=== PATIENT | male | born 1975 | race Caucasian/White ===

== ENCOUNTER 2016-07-03 08:10 | Emergency (ER) | payer OTHER ==
[2016-07-03 08:27] VITALS: BP 133/88; PULSE 78; RESP 18; TEMP 98.1; O2SAT 100
--- NOTE | 2016-07-03 10:13 | ED PDOC ---
HPI: Abdomen Time Seen by Provider: 07/03/16 09:02 Chief Complaint (Nursing): Abdominal Pain Chief Complaint (Provider): Abdominal Pain History Per: Patient History/Exam Limitations: no limitations Onset/Duration Of Symptoms: Days Current Symptoms Are (Timing): Still Present Additional Complaint(s): 41 y/o male presents to the emergency department with a complaint abdominal pain x 1 week. Associated with 1 episode of vomiting that occurred 1 week ago ( had resolved since). States his PMD in [place] gave him medication (ofloxacin/ ornidazole) for stomach infection. Denies pain radiating to the shoulder or back , fever, chills, nausea, vomiting, and diarrhea. Past Medical History Reviewed: Historical Data, Nursing Documentation, Vital Signs Vital Signs: Last Vital Signs Temp 98.1 F 07/03/16 09:07 Pulse 78 07/03/16 09:07 Resp 18 07/03/16 09:07 BP 133/88 07/03/16 09:07 Pulse Ox 100 07/03/16 11:46 - Medical History PMH: No Chronic Diseases - Surgical History Surgical History: No Surg Hx - Family History Family History: States: Unknown Family Hx - Social History Current smoker - smoking cessation education provided: Yes Alcohol: Social Drugs: Denies - Home Medications Home Medications: Ambulatory Orders Medication Instructions Recorded Dicyclomine [Bentyl] 10 mg PO QID PRN #30 cap 07/03/16 Famotidine [Pepcid] 20 mg PO BID #28 tab 07/03/16 - Allergies Allergies/Adverse Reactions: Allergies Allergy/AdvReac Type Severity Reaction Status Date / Time No Known Allergies Allergy Verified 07/03/16 09:07 Review of Systems ROS Statement: Except As Marked, All Systems Reviewed And Found Negative Constitutional: Negative for: Fever, Chills Gastrointestinal: Positive for: Vomiting (1 episode; had resolved since), Abdominal Pain. Negative for: Nausea, Diarrhea Musculoskeletal: Negative for: Shoulder Pain, Back Pain Physical Exam - Reviewed Nursing Documentation Reviewed: Yes Vital Signs Reviewed: Yes - Physical Exam Appears: Positive for: Non-toxic, No Acute Distress Head Exam: Positive for: ATRAUMATIC, NORMOCEPHALIC Skin: Positive for: Normal Color, Warm, Dry Neck: Positive for: Normal, Supple Cardiovascular/Chest: Positive for: Regular Rate, Rhythm. Negative for: Murmur Respiratory: Positive for: Normal Breath Sounds. Negative for: Accessory Muscle Use, Respiratory Distress Gastrointestinal/Abdominal: Positive for: Soft, Tenderness (Epigastric tenderness) Neurologic/Psych: Positive for: Alert, Oriented - Laboratory Results Result Diagrams: 07/03/16 10:00 07/03/16 10:00 - ECG O2 Sat by Pulse Oximetry: 100 (RA) Pulse Ox Interpretation: Normal - Progress Condition: Re-examined, Improved Medical Decision Making Medical Decision Making: Time: 9:02 Initial plan: --Comp metabolic panel --Lipase Stat --ED Urine dipstick (POC) Stat --CC w/ differential --Pepcid 20 mg IVP --Toradol 30 mg IV --IV Insertion --Abdomen COMPLETE US --Revaluation Scribe Attestation: Documented by Amaya Chavez, acting as a scribe for Christina Willis MD. Provider Scribe Attestation: All medical record entries made by the Scribe were at my direction and personally dictated by me. I have reviewed the chart and agree that the record accurately reflects my personal performance of the history, physical exam, medical decision making, and the department course for this patient. I have also personally directed, reviewed, and agree with the discharge instructions and disposition. Disposition - Clinical Impression Clinical Impression: Abdominal pain - Patient ED Disposition Is Patient to be Admitted: No Doctor Will See Patient In The: Office Counseled Patient/Family Regarding: Diagnosis, Need For Followup, Rx Given - Disposition Referrals: [facility] [Outside] [facility] [Outside] Disposition: Routine/Home Disposition Time: 11:44 Condition: IMPROVED Prescriptions: Dicyclomine [Bentyl] 10 mg PO QID PRN #30 cap PRN Reason: Anaphylaxis Famotidine [Pepcid] 20 mg PO BID #28 tab Instructions: Abdominal Pain (ED) - POA Present On Arrival: None
[2016-07-03 10:29] LABS: BASO # 0.1 K/uL (0.0-0.2); BASO % 0.5 % (0.0-2.0); EOS # 0.9 K/uL (0.0-0.7); EOS % 6.2 % (0.0-4.0); HEMATOCRIT 49.7 % (35.0-51.0); LYMPH # 1.9 K/uL (1.0-4.3); LYMPH % 13.4 % (20.0-40.0); MEAN CELL VOLUME 86.7 fl (80.0-94.0); MEAN CORPUSCULAR HEMOGLOBIN 29.2 pg (27.0-31.0); MEAN CORPUSCULAR HGB CONC 33.7 g/dL (33.0-37.0); MEAN PLATELET VOLUME 8.7 fl (7.2-11.7); MONO % 7.2 % (0.0-10.0); NEUT # 10.1 K/uL (1.8-7.0); NEUT % 72.7 % (50.0-75.0); NRBC % 0.1 % (0.0-0.0); RED CELL DISTRIBUTION WIDTH 13.6 % (11.5-14.5); WHITE BLOOD COUNT 13.8 K/uL (4.8-10.8)
[2016-07-03 10:43] LABS: ALB/GLOB RATIO 1.1 (1.0-2.1); ALKALINE PHOSPHATASE 74 U/L (38-126); ALT/SGPT 37 U/L (21-72); AST/SGOT 26 U/L (17-59); BILIRUBIN,TOTAL 0.6 mg/dl (0.2-1.3); BLOOD UREA NITROGEN 13 mg/dl (9-20); CALCIUM 9.2 mg/dL (8.4-10.2); CARBON DIOXIDE 22 mmol/L (22-30); CHLORIDE 105 mmol/L (98-107); GFR AFRICAN-AMERICAN > 60; GLUCOSE,RANDOM 99 mg/dL (75-110); LIPASE 99 U/L (23-300); POTASSIUM 4.3 MMOL/L (3.6-5.0); SODIUM 137 mmol/l (132-148); TOTAL PROTEIN 7.2 G/DL (6.3-8.2)
--- NOTE | 2016-07-03 14:10 | US ---
HISTORY: abd pain COMPARISON: None. TECHNIQUE: Sonographic evaluation of the abdomen. FINDINGS: LIVER: Measures cm. Normal echogenicity of the liver parenchyma. 2.6 centimeter hyperechoic lesion in the right hepatic lobe possibly representing hemangioma. Recommend correlation with MRI. GALLBLADDER: Unremarkable. No gallstones. COMMON BILE DUCT: Measures mm. No stones. No dilatation. PANCREAS: Unremarkable as visualized. No mass. No ductal dilatation. RIGHT KIDNEY: Measures cm. Normal echogenicity. No calculus, mass, or hydronephrosis. LEFT KIDNEY: Measures cm. Normal echogenicity. No calculus, mass, or hydronephrosis. SPLEEN: Normal in size and contour. No mass. AORTA: No aneurysmal dilatation. IVC: Unremarkable. OTHER FINDINGS: None. IMPRESSION: 2.6 centimeter hyperechoic lesion in the right hepatic lobe possibly representing hemangioma. Recommend correlation with MRI.
== END 2016-07-03 11:54 | disposition home or self-care (01) ==
LOC: H.ER 08:10
DX: R10.9 Unspecified abdominal pain (principal)